=== PATIENT | male | born 1950 | race Caucasian/White ===

== ENCOUNTER → 2017-11-24 17:03 | Outpatient (CLI) | payer MEDICARE, OTHER, SELFPAY ==
[2017-11-24 17:38] LABS: Absolute Neutrophil Count 4.5 X10^3/uL (2.0-7.7); Basophil# 0.03 X10^3/uL; Basophil% 0.4 % (0-1); Eosinophil# 0.21 X10^3/uL; Hematocrit 41.6 % (40-54); Hemoglobin 13.5 g/dl (13.0-16.5); Lymphocyte % 20.1 % (19-41); Mean Corp Hgb Conc 32.5 g/gl (32-36); Mean Corpuscular Hgb 27.6 pg (27.0-32.0); Mean Corpuscular Volume 84.9 fL (80-94); Mean Platelet Vol. 9.5 fl (6.2-12.0); Monocyte# 0.78 X10^3/uL; Monocyte% 11.2 % (0-10); Neutrophil # 4.53 X10^3/uL (2.7-7.7); Neutrophil % 65.2 % (47-70); Platelet Count 242 K/mm3 (150-450); RBC Distribution Width CV 15.3 % (11.6-14.6); RBC Distribution Width SD 47.3 fl (35.1-43.9)
[2017-11-24 17:49] LABS: POSITIVE COUNT NO; POSITIVE DIFFERENTIAL NO; POSITIVE MORPHOLOGY NO
[2017-11-24 17:54] LABS: Erythrocyte Sedimentation Rate 14 mm/hr (0-20)
== END ==
PROVIDERS: Family Provider Family Medicine; PCP Family Medicine; Visit Provider Family Medicine
DX: M1A.09X0 Idiopathic chronic gout, multiple sites, without tophus (tophi) (principal)
CPT/HCPCS: 36415; 84550; 85025; 85652; 86140

== ENCOUNTER 2018-01-24 16:00 | Emergency (ER) | payer MEDICARE, OTHER, SELFPAY ==
[2018-01-24 16:01] VITALS: BP 136/72; PULSE 89; RESP 18; TEMP 37.1; O2SAT 98
[2018-01-24 16:02] VITALS: BP 136/72; PULSE 89; RESP 17; TEMP 37.1; O2SAT 98; BMI 31.4
--- NOTE | 2018-01-24 16:33 | ED.DCSUM_ITS ---
- ER Visit Summary Date of Service: 01/24/18 Chief Complaint: Right knee and right foot pain History of Present Illness: The patient is a 67 M who states he has a history of gout. He states that for the past week he has had significant pain in the left foot and left knee. He states he used to be on allopurinol but is no longer on it. He notes a diabetes history as well as hypertension high cholesterol. He said prior left knee surgery. No fevers. No known breaks in the skin. Physical Examination: Afebrile vital signs stable Gen: Well-nourished well-developed Head: Normocephalic atraumatic Eyes: Perrl EOMI ENT: TMs clear no rhinorrhea moist mucous membranes Neck: Supple no lymphadenopathy no JVD nontender CVS: Regular rate rhythm no murmurs normal S1-S2 Respiratory: No distress clear to auscultation bilaterally chest nontender Abdomen: Soft nontender nondistended normal bowel sounds no masses Back: Nontender Extremity: Left knee demonstrates erythema and increased warmth. There is a palpable joint effusion. The left foot is tender to palpation but I do not appreciate warmth or swelling. Skin: Normal color no rash Neuro: alert orientated ?3 CN II-XII intact normal strength sensation reflexes gait cerebellar Psych: Normal affect normal mood Emergency Department Course and Treatment: Patient will be started on prednisone ibuprofen and a few OxyIR. Follow with primary care return if worsening or concerns. Impression: 1. Acute gout flare of the left knee and left foot This note was generated with [employer] dictation software. It may contain incorrect words, spelling, and punctuation that were not noted in review of the chart prior to signing ED Disposition - Plan for ED Patient: Disposition: Home or Assisted Living Chief Complaint: Lower Extremity Injury Instructions: Treating Gout Attacks, ED Diet Gout Prescriptions: Oxycodone [Oxyir] 5 mg PO Q6H PRN PRN 3 Days #12 tab PRN Reason: Pain Prednisone [Deltasone] 60 mg PO DAILY #15 tab Ibuprofen [Motrin] 800 mg PO TID #20 tab Referrals: Miguel Montiel III, MD [Primary Care Provider] - 5-7 Days
[2018-01-24] MEDS: predniSONE 20 MG Tablet 60 MG PO (16:49)
[2018-01-24] MEDS: oxyCODONE 5 MG Tablet 10 MG PO (16:49)
[2018-01-24 16:50] VITALS: BP 160/101; PULSE 88; RESP 16; O2SAT 98
== END 2018-01-24 17:02 | disposition home or self-care (01) ==
PROVIDERS: Emergency Provider Emergency Medicine; Family Provider Family Medicine; PCP Family Medicine
DX: M10.9 Gout, unspecified (principal); E11.9 Type 2 diabetes mellitus without complications; I10 Essential (primary) hypertension; E78.00 Pure hypercholesterolemia, unspecified; Z79.4 Long term (current) use of insulin; Z79.899 Other long term (current) drug therapy
CPT/HCPCS: 99285

== ENCOUNTER → 2019-05-25 07:03 | Outpatient (CLI) | payer MEDICARE, OTHER, SELFPAY ==
[2019-05-25 07:43] LABS: Albumin, Serum 3.6 g/dL (3.2-5.0)
== END ==
LOC: LAB.FUTURE 07:09 → LAB 07:09
PROVIDERS: PCP Family Medicine; Referring Provider Specialist; Visit Provider Specialist
DX: Z01.812 Encounter for preprocedural laboratory examination (principal)
CPT/HCPCS: 36415; 82040

== ENCOUNTER 2021-03-02 19:32 | Emergency (ER) | payer MEDICARE, OTHER, SELFPAY ==
[2021-03-02 19:33] VITALS: BP 142/83; PULSE 92; RESP 15; TEMP 36.4; O2SAT 96; BMI 31.4
--- NOTE | 2021-03-02 19:38 | CT_ITS ---
STUDY: CT FACIAL BONES WITHOUT CONTRAST REASON FOR EXAM: Male, 70 years old. FALL RADIATION DOSAGE (If Supplied By Facility): CTDIvol = ( 29.38 ) mGy, DLP = ( 532.76 ) mGycm TECHNIQUE: The patient was scanned in a multi detector CT scanner. Sagittal and coronal images were reconstructed. Individualized dose optimization techniques were used for this CT. COMPARISON: None. FINDINGS: There is a right periorbital hematoma associated with a subcutaneous hematoma overlying the right frontal calvarium. Normal orbital richter and orbital contents. There are nasal bone fractures. There is a fracture of the anterior nasal spine. Normal visualized paranasal sinuses. CT/Sinus/Facial Bone IMPRESSION: Nasal bone and anterior nasal spine fractures. Right periorbital hematoma associated with a subcutaneous hematoma overlying the right frontal calvarium. Electronically Signed: Brianna Goldman MD at 20:48 EST Tel , Service support ,
--- NOTE | 2021-03-02 19:38 | CT_ITS ---
STUDY: CT BRAIN WITHOUT CONTRAST REASON FOR EXAM: Male, 70 years old. HEAD INJURY RADIATION DOSAGE (If Supplied By Facility): CTDIvol = ( 44.99 ) mGy, DLP = ( 883.29 ) mGycm TECHNIQUE: Transaxial CT imaging of the brain was performed without administration of intravenous contrast material. Individualized dose optimization techniques were used for this CT. COMPARISON: No relevant priors. FINDINGS: There is a right frontal and right periorbital hematoma. There are nasal bone fractures. There is a fracture of the anterior nasal spine. There is mild cerebral atrophy with widening of the extra-axial spaces and ventricular dilatation. There are areas of decreased attenuation within the white matter tracts of the supratentorial brain, consistent with microvascular disease changes. Normal basal ganglia and thalami. Normal brainstem. There is mild cerebellar atrophy. There is no intracranial hemorrhage. There are no findings of an acute ischemic infarction. Normal visualized paranasal sinuses. CT/Brain/Head without Contrast IMPRESSION: Chronic involutional changes of the brain. Small vessel ischemia. Right periorbital hematoma associated with a subcutaneous hematoma overlying the right frontal calvarium. Nasal bone and anterior nasal spine fractures. Electronically Signed: Brianna Goldman MD at 20:25 EST Tel , Service support ,
--- NOTE | 2021-03-02 19:38 | CT_ITS ---
STUDY: CT CERVICAL SPINE WITHOUT CONTRAST REASON FOR EXAM: Male, 70 years old. FALL RADIATION DOSAGE (If Supplied By Facility): CTDIvol = ( 26.89 ) mGy, DLP = ( 545.55 ) mGycm TECHNIQUE: High resolution transaxial imaging was performed without contrast material. Sagittal and coronal images were reconstructed. Individualized dose optimization techniques were used for this CT. COMPARISON: None FINDINGS: Normal craniovertebral junction. There are degenerative changes of the anterior atlantoaxial articulation. Normal odontoid process. There is straightening of the normal cervical lordosis. There is multilevel disc space narrowing and facet hypertrophy. C2-3: Normal endplates. Normal disc height and morphology. Normal central canal and intervertebral neuroforamina. C3-4: There is a posterior disc osteophyte associated with stenosis of the central canal and bilateral narrowing of the intervertebral neuroforamina. C4-5: There is a posterior disc osteophyte associated with stenosis of the central canal and narrowing of the left intervertebral neuroforamina. C5-6: Is a posterior disc osteophyte associated with stenosis of the central canal and narrowing of the right intervertebral neuroforamina. C6-7: There is a posterior disc osteophyte associated with stenosis of the central canal and bilateral narrowing of the intervertebral neuroforamina. C7-T1: There is endplate spondylosis. Normal central canal and intervertebral neuroforamina. There are vascular calcifications. CT/Spine Cervical without Contras IMPRESSION: Multilevel degenerative changes, as described above. Atherosclerosis. Electronically Signed: Brianna Goldman MD at 21:15 EST Tel , Service support ,
--- NOTE | 2021-03-02 19:38 | CT_ITS ---
STUDY: CT CHEST WITHOUT CONTRAST REASON FOR EXAM: Male, 70 years old. FALL RADIATION DOSAGE (If Supplied By Facility): CTDIvol = ( 19.16 ) mGy, DLP = ( 756.55 ) mGycm TECHNIQUE: Transaxial imaging was performed without the administration of intravenous contrast material. Individualized dose optimization techniques were used for this CT. COMPARISON: None. FINDINGS: There is minimal bibasilar atelectasis and/or scarring. There are calcifications of the coronary arteries. There are scattered calcified mediastinal and right hilar lymph nodes. There are scattered mildly prominent lymph nodes. Normal unenhanced pulmonary arteries. There is atherosclerotic calcification of the aortic arch and descending thoracic aorta. There are deformities of the right anterolateral sixth, seventh and eighth ribs. The limited images of the upper abdomen demonstrate a cirrhotic appearing liver. There are hepatic and splenic granulomas. There are gallstones within the gallbladder. There is splenomegaly. There is atrophy of the right kidney. CT/Chest without Contrast IMPRESSION: Indeterminate cortical defects within the right sixth, seventh and eighth ribs, may reflect underlying fractures of uncertain chronicity. Atherosclerosis. Minimal bibasilar atelectasis and/or scarring. Splenomegaly. Evidence of prior granulomatous disease. Cirrhotic appearing liver. Electronically Signed: Brianna Goldman MD at 21:01 EST Tel , Service support ,
--- NOTE | 2021-03-02 22:18 | EDS_ITS ---
HPI HPI - Fall History of Present Illness Chief Complaint: Fall Informant: patient Narrative Narrative: Patient walked through the door. He did not know there is a step down immediately after the door. He stepped down and fell. He landed on his hands then hit his head. There was no loss of consciousness. He is not on blood thinners. However, after he landed he states he had trouble moving his arms for about 10 minutes. He can move them now but he still has a tingling pins and needle sensation across the upper shoulders and down the back and the lateral aspect of both arms down to the elbows. Hands work fine. He has no sensory changes. He states although he hit his head he has no pain there. He has no pain in his spine. He states he felt a little soreness in his right anterior chest but it does not hurt now and is not short of breath. He does report prior rib fractures. He states his tingling seems better when he stands up and might be a little worse laying down. But his trend is overall toward improvement. PFSH PFSH Home Medications atorvastatin 10 mg PO DAILY 01/24/18 [History Last Taken Unknown] hydrochlorothiazide 12.5 mg PO DAILY 01/24/18 [History Last Taken Unknown] ibuprofen 800 mg PO TID #20 tab 01/24/18 [Rx Last Taken Unknown] insulin detemir U-100 [Levemir] 10 units SQ BREAKFAST 01/24/18 [History Last Taken Unknown] insulin detemir U-100 [Levemir] 35 unit SQ QHS 01/24/18 [History Last Taken Unknown] lisinopril 20 mg PO DAILY 01/24/18 [History Last Taken Unknown] metformin 500 mg PO DAILY 01/24/18 [History Last Taken Unknown] prednisone 60 mg PO DAILY #15 tab 01/24/18 [Rx Last Taken Unknown] Allergy/AdvReac Type Severity Reaction Status Date / Time No Known Allergies Allergy Verified 01/24/18 16:01 Social History Smoking Status: Never smoker ROS ROS ED Constitutional Constitutional ED: Denies fever(s) or subjective Eyes Eyes: Denies blurry vision, change in vision or diplopia ENT ENT ED: Reports other Details: Mild nose pain where his glasses hit his nose. ; Denies rhinorrhea or sore throat Cardiovascular Cardiovascular: Denies chest pain or palpitations Respiratory/Chest Respiratory/Chest: Denies cough or dyspnea Gastrointestinal Gastrointestinal: Denies abdominal pain, nausea or vomiting Genitourinary Genitourinary ED: Denies dysuria or hematuria Musculoskeletal Musculoskeletal: Reports other Details: No actual neck pain. He does have the [id number] feeling as above. ; Denies back pain or neck pain Integumentary Denies rash Neurologic Neurologic: Reports paresthesias; Denies headache(s) or weakness Psychiatric Psychiatric: Denies depression Endocrine Endocrinology: Denies polyuria Hematologic/Lymphatic Hematologic/Lymphatic: Denies easy bleeding or easy bruising Allergic/Immunologic Allergic/Immunologic ED: Denies mouth swelling or urticaria EXAM Physical Exam Const Vital Signs: 03/02/21 19:33 03/02/21 23:06 Temperature 97.6 F L Temperature Source Temporal Pulse Rate 92 Respiratory Rate 15 Respiratory Effort Normal Respiratory Depth Normal Respiratory Pattern Normal Blood Pressure 142/83 H Blood Pressure Mean 102 Pulse Ox 96 Oxygen Delivery Method Room Air Patient is awake alert and appropriate looks comfortable. Positive well nourished, well developed and obese General Appearance ED: well developed and NAD Nutritional Appearance: obese HEENT HEENT Narrative: Patient has contusions across the anterior forehead mostly on the right. Also abrasions above the nose. No septal hematoma or nasal bleeding. Eyes PERRL and EOMs intact bilaterally Neck no lymphadenopathy and supple Neck Narrative: No neck tenderness on exam. Chest Wall inspection of chest normal Resp normal respiratory effort, no retractions and clear to auscultation bilaterally Resp Narrative: After reading his CAT scan, I was surprised but his chest wall really does not show tenderness. He states he had an area in the anterior chest that was sore but is not sore now. He actually moved and twisted. I compressed his chest and he states it does not hurt. The CT finding is suspicious for 3 fractures but the age was uncertain so these could be old. Auscultation: Negative for rales, rhonchi or wheezes Cardio regular rate and regular rhythm GI non-tender Palpation: soft Back/Spine no CVA tenderness Extremity full ROM and normal capillary refill Extremity Narrative: Patient does have a slight contusion to the dorsal medial right hand. No deformity. Neuro oriented x3 Neuro Narrative: There is no weakness of upper extremity in shoulder elbow wrist or hand. His graphesthesia is even normal. I am not finding clinical indication of central cord syndrome. Sensorium / Orientation: alert Psych mental status grossly normal Skin Rashes: no rashes MDM MDM MDM Narrative Medical decision making narrative: CT of the head and face show nasal bone and anterior nasal spine fracture. There is hematoma that can be seen. No intracranial injury. CT the cervical spine shows no acute fracture or dislocation. CT of the chest showed cortical defect on 6 7 and eighth ribs on the right but uncertain chronicity. Patient is actually not having pain at that area now. He states the tingling is not getting worse. He reasserts that when he first fell his arms were behind him. They were numb and he could not move them for about 10 minutes. That has gotten better. I have talked to staff. We will put a collar on him precaution early. I made calls to [facility], [facility], [facility]. They did not have any beds. I was able to get hold of [facility]. Patient is excepted by Dr. Simin Babcock. I explained this to the patient and family and the reasons for this. My concern is if he has cervical injury that may need to be seen on MRI. We do not have trauma services available here. I do not have MRI at this time. Radiography Diagnostic Testing: Clinical Impression(s) from Imaging Studies Brain CT 03/02/21 19:38 IMPRESSION: Chronic involutional changes of the brain. Small vessel ischemia. Right periorbital hematoma associated with a subcutaneous hematoma overlying the right frontal calvarium. Nasal bone and anterior nasal spine fractures. Electronically Signed: Brianna Goldman MD at 20:25 EST Tel , Service support , Cervical Spine CT 03/02/21 19:38 IMPRESSION: Multilevel degenerative changes, as described above. Atherosclerosis. Electronically Signed: Brianna Goldman MD at 21:15 EST Tel , Service support , Chest CT 03/02/21 19:38 IMPRESSION: Indeterminate cortical defects within the right sixth, seventh and eighth ribs, may reflect underlying fractures of uncertain chronicity. Atherosclerosis. Minimal bibasilar atelectasis and/or scarring. Splenomegaly. Evidence of prior granulomatous disease. Cirrhotic appearing liver. Electronically Signed: Brianna Goldman MD at 21:01 EST Tel , Service support , Facial/Sinus 03/02/21 19:38 IMPRESSION: Nasal bone and anterior nasal spine fractures. Right periorbital hematoma associated with a subcutaneous hematoma overlying the right frontal calvarium. Electronically Signed: Brianna Goldman MD at 20:48 EST Tel , Service support , Discharge Plan Triage Chief Complaint: Fall ED Provider: Kedar Bartlett Dx/Rx/DC Orders Clinical Impression: Fall from slip, trip, or stumble, Closed head injury, Arm paresthesia, right, Arm paresthesia, left Prescriptions: No Action metformin 500 MG tablet 500 mg PO DAILY RF: 0 atorvastatin 10 MG tablet 10 mg PO DAILY RF: 0 lisinopril 20 MG tablet 20 mg PO DAILY RF: 0 hydrochlorothiazide 12.5 MG capsule 12.5 mg PO DAILY RF: 0 insulin detemir U-100 [Levemir U-100 Insulin] 100 UNIT/ML Vial 35 unit SQ QHS RF: 0 insulin detemir U-100 [Levemir U-100 Insulin] 100 UNIT/ML Vial 10 units SQ BREAKFAST RF: 0 ibuprofen 800 MG tablet 800 mg PO TID Qty: 20 RF: 0 prednisone 20 MG tablet 60 mg PO DAILY Qty: 15 RF: 0 Primary Care Provider: Miguel Montiel III Referrals: Miguel Montiel III, MD [Primary Care Provider] - Disposition Disposition: Acute Care Hospital Discharge Location: [facility]
--- NOTE | 2021-03-02 22:21 | RAD_ITS ---
STUDY: X-RAY - RIGHT HAND REASON FOR EXAM: Male, 70 years old. trauma TECHNIQUE: 3 view(s) of the hand. COMPARISON: None. FINDINGS: No visualized acute fracture or displaced bony fragment. There is moderate to significant narrowing of the radial ulnar articulation with osteophytic changes seen on the ulnar side of the joint. The radiocarpal articulation is mildly narrowed. Normal visualized carpal bones. Normal carpal articulations Normal carpometacarpal articulation of the thumb. Normal second through fifth carpometacarpal joints. Normal metacarpi. Normal metacarpophalangeal joint of the thumb. Normal interphalangeal joint of the thumb. Normal proximal and distal phalanges of the thumb. Normal metacarpophalangeal joints of the second through fifth fingers. Normal proximal and distal interphalangeal joints of the second through fifth fingers. Normal phalanges of the second through fifth fingers. The soft tissue structures are unremarkable. RAD/Hand Min 3 Views IMPRESSION: Degenerative joint disease of the hand and wrist, as described above. Electronically Signed: Lester Presley MD at 23:37 EST , Service support ,
[2021-03-02 23:59] VITALS: BP 141/100; PULSE 88; RESP 16; O2SAT 99
--- NOTE | 2021-03-03 01:01 | ED.RN ---
ATTEMPTED TO CALL REPORT TO , PHONE RANG MULTIPLE TIMES WITH NO RESPONSE. WILL ATTEMPT LATER.
[2021-03-03 01:12] VITALS: BP 155/100; PULSE 88; RESP 16; TEMP 36.4; O2SAT 96
== END 2021-03-03 00:20 | disposition short-term general hospital (02) ==
PROVIDERS: Emergency Provider Emergency Medicine; PCP Family Medicine
DX: S02.2XXA Fracture of nasal bones, initial encounter for closed fracture (principal); S00.83XA Contusion of other part of head, initial encounter; S60.221A Contusion of right hand, initial encounter; R20.2 Paresthesia of skin; W01.10XA Fall on same level from slipping, tripping and stumbling with subsequent striking against unspecified object, initial encounter; Y93.01 Activity, walking, marching and hiking; Y92.9 Unspecified place or not applicable; Y99.9 Unspecified external cause status; E66.9 Obesity, unspecified; Z79.1 Long term (current) use of non-steroidal anti-inflammatories (NSAID); Z79.52 Long term (current) use of systemic steroids; Z79.4 Long term (current) use of insulin
CPT/HCPCS: 70450; 70486; 71250; 72125; 73130; 99285